=== PATIENT | male | born 1945 | race Caucasian/White ===

== ENCOUNTER 2019-01-26 15:39 | Inpatient (IN) ==
[2019-01-26] MEDS ORDERED: LOVENOX SUBQ SCH (19:15)
[2019-01-26 19:44] LABS: BASO# 0.03 X1000 (0.0-0.2); BASO% 0.4 % (0.0-0.8); EOS# 0.03 X1000 (0.0-0.7); EOS% 0.4 % (0.0-10.0); HEMATOCRIT 42.2 % (42.0-52.0); HEMOGLOBIN 14.2 g/dL (14.0-18.0); LYMPH# 2.14 X1000 (1.2-3.4); LYMPH% 27.5 % (20.5-51.1); MCH 32.3 PG (27-31); MCHC 33.6 g/dL (33-37); MCV 95.9 FL (81-99); MONO# 0.93 X1000 (0.11-0.59); MONO% 11.9 % (1.7-9.3); MPV 10.1 FL (7.4-10.4); NEUT# 4.66 X1000 (1.4-6.5); NEUT% 59.8 % (42.2-75.2); PLT 199 X1000 (130-400); RDW 15.2 % (11.5-14.5); WBC 7.79 X1000 (4.8-10.8)
[2019-01-26 20:14] LABS: AGAP 12; ALB/GLOB RATIO 1.4; ALBUMIN 3.7 g/dL (3.5-5.0); ALKALINE PHOSPHATASE 45 U/L (32-122); BUN 9 mg/dL (8-22); CALCIUM 9.1 mg/dL (8.8-10.2); CHLORIDE 101 mmol/L (98-107); COSMO 272; CREATININE 0.9 mg/dL (0.7-1.2); ESTIMATED GFR > 60; GLUCOSE 84 mg/dL (70-104); GOT 48 U/L (10-34); GPT 45 U/L (10-44); POTASSIUM 4.3 mmol/L (3.5-5.1); SODIUM 137 mmol/L (136-145); TCO2 24 mmol/L (25-35); TOTAL PROTEIN 6.3 g/dL (6.3-8.3)
[2019-01-26 20:15] LABS: CK PROFILE 771 U/L (24-204)
[2019-01-26 20:24] LABS: FREE T4 1.23 ng/dL (0.93-1.70); TSH 0.47 uIUmL (0.27-4.20)
[2019-01-26 20:30] LABS: C REACTIVE PROT QUANT 0.88 mg/L (0.00-5.00); CK INDEX 4.9 (0.0-2.5)
[2019-01-26 20:34] LABS: ALLEN TEST YES; BE 1.9 mmoll (-3.0-3.0); BLOOD TYPE ARTERIAL; HCO3-(ACT) 26.3 mmoll (20.0-26.0); METHB 0.9 % (0.0-1.5); MODALITY ROOM AIR; O2(CT) 18.2 mL/dL (15.0-23.0); O2HB 92.7 % (95.0-99.0); PCO2(98.6) 41 mmHg (35-45); PO2(98.6) 80 mmHg (60-100); SAMPLE BLOOD; SAO2 98.1 % (95.0-100.0); THB 13.9 g/dL (11.5-17.4); pH(98.6) 7.42 (7.35-7.45)
[2019-01-26 20:46] LABS: SED RATE 0 mm/hr (0-15)
[2019-01-26] MEDS ORDERED: PRAVACHOL PO SCH (21:00)
--- NOTE | 2019-01-26 21:17 | Diag Imaging Result Doc PS360 ---
EXAM: CHEST-2 VIEWS HISTORY: SOB TECHNIQUE: Chest two views COMPARISON: 10/28/2018 FINDINGS: The lungs are hyperexpanded the heart is mildly enlarged. There are sternal wires and a left-sided pacemaker. The vessels are not distended. There are no infiltrates. No pleural effusions. IMPRESSION: Mild cardiomegaly, but no congestive failure. Electronically signed by Malcolm Perez 01/26/2019 9:15 PM
--- NOTE | 2019-01-26 21:19 | Diag Imaging Result Doc PS360 ---
EXAM: LUMBAR SPINE HISTORY: Pain TECHNIQUE: AP and lateral with obliques, six views COMPARISON: None. FINDINGS: Mild scoliosis. Moderate degenerative bone spurring. Small vacuum discs. No compression fracture. No subluxation. Prominent atherosclerosis. IMPRESSION: Moderate degenerative changes. Electronically signed by Malcolm Perez 01/26/2019 9:17 PM
[2019-01-26] MEDS: ELIQUIS PO SCH (21:35)
[2019-01-26] MEDS: COREG PO SCH (21:35)
[2019-01-26] MEDS: XANAX PO SCH (21:36)
[2019-01-26] MEDS: HUMULIN R SUBQ SCH (22:52)
--- NOTE | 2019-01-26 23:34 | HISTORY AND PHYSICAL ---
CHIEF COMPLAINT: Wobbling of legs, weakness unable to walk even to the main bathroom, frequent falls. HISTORY OF PRESENT ILLNESS: He is a 73-year-old white male who recently lost his . Since then, he has been depressed. His [id number] lives right across the house. He was seen yesterday in my office with chronic anxiety and depression. He also is having weakness in the legs. This is something new for the last 10 days. He quit smoking several years ago. He has a decreased pulses on the right side. He is getting cramping in the leg upon walking. No weakness. I did the workup as an outpatient. Apparently, family brought in my office today that he cannot even go to the mailbox. Cgfjji-mb-frn was the caregiver at this time. On examination, no signs of gangrene. Decreased pulse on the right leg. He has good strength. Admitted to the hospital with rule out claudication, rule out myopathy, and rule out neurogenic claudication. He denies of any incontinence of bladder and bowels. No other symptoms. Admitted to the hospital for observation. PAST MEDICAL HISTORY: 1. BPH. 2. CAD with status post bypass surgery, with ejection fraction 30%. 3. Hypertension. 4. Insomnia. 5. Osteoarthritis. 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 7. PAF. 8. Multiple seborrheic keratoses. 9. Lumbar spine spondylosis. PAST SURGICAL HISTORY: Bypass surgery, AICD in 2014. ALLERGIES: Sulfa. MEDICATIONS: Aspirin 81 mg daily, pravastatin 40 daily, Xanax 1 mg p.o. b.i.d., Coreg 12.5 p.o. b.i.d., Eliquis 5 mg p.o. b.i.d., losartan 5 mg daily. SOCIAL HISTORY: Lives in [place]. Recently , no children. Rvjiza-st-xak is the caregiver. Smoking 1 pack a day for last 40 years, he said he quit smoking. No alcohol abuse. FAMILY HISTORY: Father of heart attack at 66. Mom of heart attack at 71. HEALTH MAINTENANCE: Refuses influenza vaccine. Last colonoscopy 2010. REVIEW OF SYSTEMS: HEENT: No headache. No vision problem. No earache. No sore throat. Neck: No goiter. No lymphadenopathy. No bruit. Cardiopulmonary: No chest pain, shortness of breath, PND, orthopnea. Gastrointestinal: No nausea, vomiting, abdominal pain. Genitourinary: No history of hesitancy, frequency, dysuria. No back pain. Musculoskeletal: Weakness in both legs upon walking and not able to go to the bathroom with the falls. Neurologic: No definitive weakness. No seizures. PHYSICAL EXAMINATION: VITAL SIGNS: Temperature is 97.4 degrees, pulse is 69, blood pressure is 152/81. 6 feet tall, 191 pounds. HEENT: Atraumatic, normocephalic. Pupils equal, reactive to light. TMs are normal. Nose and throat within normal limits. NECK: Supple. No lymphadenopathy. No goiter. CHEST: Bilateral air entry. HEART: Sounds are regular. ABDOMEN: Belly is soft, nontender. Good bowel sounds. EXTREMITIES: Decreased pulses in both feet. Femoral bruit noted. Pulses are decreased on the right side. No signs of gangrene. NEUROLOGIC: Reflexes present. Sensory exam is intact. No deficits noted. Plantar is going down. LABORATORIES: CBC: White cell count 7.7, hematocrit 42, platelets 199,000. ABG: pH is 7.42, pCO2 of 41, pO2 of 80 on room air. Carboxyhemoglobin is 4.6. SMA-7 is normal. AST and ALT were high. CK was high. ProBNP slightly elevated. B12, TSH are normal. IMAGING STUDIES: X-ray of lumbar spine: Moderate DJD changes noted. X-ray of chest: Cardiomegaly. AICD noted on the left side. No pleural effusion. ASSESSMENT AND PLAN: 1. A 73-year-old white gentleman admitted to the hospital with ischemic cardiomyopathy status post bypass, automatic implantable cardioverter-defibrillator, ejection fraction 30%. 2. Intermittent paroxysmal atrial fibrillation, currently in sinus on skidder driver. Unable to tolerate Entresto. Continue aspirin, Coreg, losartan, and Eliquis. 3. Weakness in both legs upon walking. Check the FAVIAN. Also neurogenic claudication. Is not a candidate for MRI of lumbar spine. 4. Check the vitamin D levels. 5. Elevated CK, rule out myopathy. Discontinue pravastatin. 6. Deep vein thrombosis prophylaxis on Eliquis. 7. Will follow up on the pending studies. cc: Emile Calix MD
[2019-01-27] MEDS: HUMULIN R SUBQ SCH ×4 (06:23→21:06)
--- NOTE | 2019-01-27 06:44 | EKG Report ---
Test Performed on : 01/26/2019 8:21:52 PM Test Reason : chest pain Blood Pressure : / mmHG Vent. Rate : 076 BPM Atrial Rate : 081 BPM P-R Int : 000 ms QRS Dur : 090 ms QT Int : 394 ms P-R-T Axes : 000 000 242 degrees QTc Int : 443 ms Atrial fibrillation. with frequent ventricular-paced complexes T wave abnormality, consider inferolateral ischemia Abnormal ECG When compared with ECG of 26-OCT-2018 17:26, Vent. rate has decreased BY 3 BPM Unconfirmed Result
[2019-01-27 07:52] LABS: CK INDEX 4.9 (0.0-2.5); CK-MB 18.08 ng/mL (0.0-5.0)
[2019-01-27] MEDS: XANAX PO SCH ×2 (09:25→21:06)
[2019-01-27] MEDS: ELIQUIS PO SCH ×2 (09:25→21:06)
[2019-01-27] MEDS: ASPIRIN PO SCH (09:25)
[2019-01-27] MEDS: COREG PO SCH ×2 (09:25→21:06)
[2019-01-27] MEDS: COZAAR PO SCH (09:26)
[2019-01-27] MEDS: VITAMIN D PO SCH (11:16)
--- NOTE | 2019-01-27 18:15 | PROGRESS NOTE ---
DATE: 01/27/2019 SUBJECTIVE: The patient not able to ambulate even go to the bathroom with a wobbling and falling. He denies of any weakness. No sensory disturbances. No bladder incontinence or bowel incontinence. No back pain. Workup was reviewed. He is still smoking. EXAM: Temperature is 97 degrees, pulse is 72, blood pressure is 136/83, 97% on room air.HEENT: Within normal limits. Neck: Supple. Chest: Clear. Heart: Sounds are regular. Belly: Soft, nontender. Neurological: Motor power 4/5. Reflexes absent knee and ankle jerk. Plantar is going down. Cremasteric reflex present. Pulses are decreased on the right side. INVESTIGATIONS: CK is coming down. ProBNP 3800. Vitamin D is low. B12 is normal. TSH, free T4 is normal. ASSESSMENT AND PLAN: 1. Bilateral weakness etiology to be determined. FAVIAN is normal. I do not think vascular claudication is precluding him not able to walk. 2. Elevated CK. Discontinue pravastatin. 3. Vitamin D deficiency on replacement. 4. Check the copper levels. 5. Possibilities rule out myopathy, rule out polyneuropathy, schedule for EMG and nerve conduction studies. Consult Neurology and he denies of any back pain. I doubt it this is related to lumbar spinal stenosis. Closely monitor. Neuro checks every 8 hours. Manager Latin to the bathroom with physical therapy and also walker. 6. Other problems chronic tobacco abuse withdrawals, Nicotrol patch. 7. Chronic anxiety on Xanax and ischemic cardiomyopathy stable and will repeat the CK on a daily basis and follow up on aldolase levels. Will discuss with Dr. Fuller on Wednesday. LEVEL OF DOCUMENTATION: 25 minutes. cc: Emile Calix MD
[2019-01-27] MEDS: NICODERM PATCH TD SCH (19:07)
[2019-01-27 22:40] LABS: CK INDEX 4.7 (0.0-2.5); CK-MB 14.87 ng/mL (0.0-5.0)
[2019-01-28] MEDS: HUMULIN R SUBQ SCH ×4 (06:22→22:35)
[2019-01-28 07:57] LABS: CK-MB 12.83 ng/mL (0.0-5.0)
[2019-01-28] MEDS: COZAAR PO SCH (09:24)
[2019-01-28] MEDS: ELIQUIS PO SCH ×2 (09:24→20:19)
[2019-01-28] MEDS: NICODERM PATCH TD SCH (09:24)
[2019-01-28] MEDS: COREG PO SCH ×2 (09:24→20:19)
[2019-01-28] MEDS: XANAX PO SCH ×2 (09:24→20:19)
[2019-01-28] MEDS: VITAMIN D PO SCH (09:24)
[2019-01-28] MEDS: ASPIRIN PO SCH (09:24)
--- NOTE | 2019-01-28 12:52 | PROGRESS NOTE ---
DATE: 01/28/2019 Mr. Bull is continuing to have weakness in the legs. His sensations are normal in the legs. However, he is extremely weak. He has weakness, difficulty in walking because of weakness. His vital signs are stable. According to Dr. Calix, his FAVIAN was normal. He may need neurology consultation if he continues to have the weakness. -9 cc: MD Emile Ponce MD
[2019-01-29] MEDS: HUMULIN R SUBQ SCH ×4 (05:45→20:00)
[2019-01-29 07:47] LABS: CK INDEX 6.2 (0.0-2.5); CK-MB 14.09 ng/mL (0.0-5.0)
[2019-01-29] MEDS: NICODERM PATCH TD SCH (10:01)
[2019-01-29] MEDS: ASPIRIN PO SCH (10:02)
[2019-01-29] MEDS: COZAAR PO SCH (10:02)
[2019-01-29] MEDS: XANAX PO SCH ×2 (10:03→20:00)
[2019-01-29] MEDS: ELIQUIS PO SCH ×2 (10:03→20:00)
[2019-01-29] MEDS: COREG PO SCH ×2 (10:03→20:00)
[2019-01-29] MEDS: VITAMIN D PO SCH (10:03)
--- NOTE | 2019-01-29 14:38 | PROGRESS NOTE ---
DATE: 01/29/2019 SUBJECTIVE: Mr. Luna continues to have some problem. He had elevated CK and CK-MB as well as aldolase levels. His blood pressure was 144/99. He has feeble pedal pulses. He has been having some claudication pain. Overall condition is unchanged. We are going to continue with the current management. -5 cc: MD Emile Ponce MD
[2019-01-30] MEDS: HUMULIN R SUBQ SCH ×4 (05:41→22:22)
[2019-01-30] MEDS: ASPIRIN PO SCH (09:40)
[2019-01-30] MEDS: NICODERM PATCH TD SCH (09:40)
[2019-01-30] MEDS: XANAX PO SCH ×2 (09:40→22:26)
[2019-01-30] MEDS: COZAAR PO SCH (09:40)
[2019-01-30] MEDS: ELIQUIS PO SCH ×2 (09:40→22:26)
[2019-01-30] MEDS: VITAMIN D PO SCH (09:40)
[2019-01-30] MEDS: COREG PO SCH ×2 (09:40→22:26)
--- NOTE | 2019-01-30 15:04 | CONSULTATION ---
DATE OF CONSULTATION: 01/30/2019 NEUROLOGY CONSULT: HISTORY OF PRESENT ILLNESS: Mr. Bull is 73 years old, and he reports unsteady gait for the last 2 months with a few falls. He reports no problems with clumsiness in the legs, staggering, falling prior to a few months ago. He believes problems began fairly abruptly 2 or 3 months ago, just a few weeks before his . He attributes this gait problem to a medication change, but he cannot tell me today which medication was changed. He believes that something was stopped and something was started at that time, and within a day or 2, he was having unsteady gait. He reports right and left legs feel equally clumsy. He does not notice definite loss of power in the legs. He denies numbness in the feet. He has not noticed clumsiness in the arms. He has had some back problems in the past, but no recent significant back pain and no radicular pain. He has not lost bowel or bladder control. He fell once going to the mailbox. He has fallen at least one other time. He has nearly fallen a few other times. He believes his unsteady gait has been constant, not significantly improved or deteriorated since onset. PAST HISTORY: Remarkable for hypertension, ischemic heart disease, heart failure, ischemic cardiomyopathy, COPD, anxiety. SOCIAL HISTORY: He smokes cigarettes. He stopped using ethanol about 20 years ago, by his report. CURRENT MEDICATIONS: Alprazolam 1 mg b.i.d. and he reports he has been taking that for many years and almost never misses a dose. (We do not have drug screen reported this admission.) He has aspirin, Eliquis, pravastatin, carvedilol, losartan. Again, he cannot tell me which one of these is new. VITAL SIGNS: Vital signs record shows he is afebrile. Systolic blood pressures were 100-120 during the first day here and 120 to 140s since then. DIAGNOSTIC STUDIES: Labs showed initial CK 771 with gradual decline and CK 135 today. Aldolase was 17.9 four days ago on presentation. Blood sugars have ranged 78 to 129 this admission. MCV has been normal 95.9 this admission, mid 90s on several checks over the last several years. B12 recorded 751 this admission. Normal thyroid. He has mildly elevated AST 48 and ALT 45, and these are higher than baseline. Lumbosacral x-ray shows degenerative changes and mild scoliosis. We do not have brain imaging recorded here, and he does not recall recent brain imaging study. PHYSICAL EXAMINATION: On exam, Mr. Bull is awake, alert, attentive, and appropriate. Speech is not significantly dysarthric. Language function is intact. Memory is good. He was able to discuss recent news with accurate detail. Head and neck are unremarkable. He has good extraocular movements. Visual cedeno are full. Facial motility is symmetric. Strength is normal in the arms and proximally in the legs. I can overcome the anterior tibialis, toe extensors, and toe flexors grading 4/5 bilaterally. Tone is reduced in the lower leg bilaterally. Reflexes are absent at the ankles, trace at the right knee, absent at the left knee, 1+ symmetrically at the wrists. Plantar response is silent bilaterally. He reports diminished pinprick and light touch appreciation in a stocking pattern extending to near the knee bilaterally. Proprioception is poor at the great toe MTP joint bilaterally. Gait is wide-based, mostly ataxic. There may be an antalgic feature to gait, but ataxia is more prominent. Romberg position is impossible for him with eyes open or closed. He cannot place his feet properly for heel-to-toe tandem walking without vigorous assistance. He has trouble with [id number] testing bilaterally. He did well on [id number] testing bilaterally. IMPRESSION: Predominantly ataxic gait. There is clinical evidence of peripheral neuropathy, which may or may not be contributing. His report is fairly abrupt onset of gait difficulty a few months ago with stable course since then. That history suggests stroke, but the symmetry of findings make stroke less likely. His ethanol use is reported remote and not likely to explain current cerebellar syndrome. B12 level is normal, and he does not have other evidence of myelopathy, so subacute combined degeneration seems unlikely. He might have mild diabetes mellitus and diabetic neuropathy, but that would not explain the prominent ataxia. He does not report significant weight loss, but the cigarette smoking history is noted, and a paraneoplastic problem would not be impossible. There is likely at least some ischemic peripheral vascular disease, which may contribute to the neuropathy, but would not account for the prominent ataxia. I think we need to go ahead with workup, including nerve conduction study and brain imaging. Brain MRI would be preferable, but he reports defibrillator placed, and we will have to settle for CT scan. These studies can be done as outpatient if he is otherwise ready for discharge. I will plan to follow up with him after workup. I strongly encouraged him to quit smoking cigarettes. He needs to continue ethanol abstinence. I encouraged him to be careful with gait and activities, and I specifically advised him not to walk without cane, walker, or holding on to someone or something. Thanks for asking Neurology to see Mr. Bull. cc: MD Emile Lobato III, MD MTDD
--- NOTE | 2019-01-30 21:53 | PROGRESS NOTE ---
DATE: 01/30/2019 Events noted over the weekend. Waiting to be seen by Dr. Fuller. He can able to walk a little better but still is getting leg pains, weakness. Follow up on copper levels are normal. Follow up on CK is coming down, aldolase is high and he denies of any back pain. EXAMINATION: Vital Signs: Temperature is 97 degrees, pulse is 60, blood pressure 120/80. HEENT: Within normal limits. Neck: Supple. Chest: Clear to auscultation and heart sounds are regular. Belly: Soft, nontender and gait is somewhat improved. INVESTIGATIONS: Sed rate is normal. CK was coming down to 135. Vitamin D level is low, copper level is normal. ASSESSMENT AND PLAN: 1. Unsteady gait, weakness in both legs, probably elevated CK from myopathy and discontinued pravastatin. 2. Vitamin D deficiency on replacement therapy. 3. Physical therapy consults . 4. Nicotine cessation program and follow up on vascular studies. Will discuss with Dr. Fuller about his plans about nerve condition studies and further workup. In the meantime, continue to observe. Also discussed about the disposition going home with outpatient home health or rehab. The decision is pending. Will discuss with his caregiver. LEVEL OF DOCUMENTATION: 25 minutes. cc: Emile Calix MD
[2019-01-31] MEDS: HUMULIN R SUBQ SCH ×4 (06:18→23:54)
[2019-01-31] MEDS: ASPIRIN PO SCH (09:19)
[2019-01-31] MEDS: COZAAR PO SCH (09:19)
[2019-01-31] MEDS: VITAMIN D PO SCH (09:19)
[2019-01-31] MEDS: COREG PO SCH ×2 (09:19→20:31)
[2019-01-31] MEDS: NICODERM PATCH TD SCH (09:20)
[2019-01-31] MEDS: ELIQUIS PO SCH ×2 (09:20→20:30)
[2019-01-31] MEDS: XANAX PO SCH ×2 (09:24→20:30)
--- NOTE | 2019-01-31 11:05 | Diag Imaging Result Doc PS360 ---
EXAM: CT LUMBAR SPINE W/CONTRAST 01/31/2019 HISTORY: spinal stenosis TECHNIQUE: This exam was performed using automated exposure control, adjustment of mA or kV according to patient size, and/or use of iterative reconstruction technique. COMMENT: There is disc desiccation with vacuum disc phenomenon and loss of height at the L3-4 L4-5 and L5-S1 levels. No evidence of acute fracture or subluxation is present. There are atherosclerotic calcifications in the abdominal aorta. There is mild generalized curvature of the lumbar spine with convexity to the left. At the T12-L1 level there is no evidence of spinal or foraminal stenosis. At the L1-2 level, there is some disc bulge without evidence of spinal or foraminal stenosis. At the L2-3 level there is some disc bulge without evidence of spinal or foraminal stenosis. At the L3-4 level there is disc bulge without evidence of foraminal stenosis or significant spinal stenosis. At L4-5 there is disc bulge with mild narrowing of the canal. There is no evidence of foraminal stenosis. At the L5-S1 level there is no evidence of spinal or foraminal stenosis. IMPRESSION: Minimal spinal stenosis at L4-5. Electronically signed by Boaz 01/31/2019 11:03 AM
--- NOTE | 2019-01-31 11:13 | Diag Imaging Result Doc PS360 ---
EXAM: CT HEAD W/WO CONTRAST 01/31/2019 HISTORY: AMS, BILATERAL LEG NUMBNESS TECHNIQUE: This exam was performed using automated exposure control, adjustment of mA or kV according to patient size, and/or use of iterative reconstruction technique. COMMENT: There are no previous studies available for comparison. There is a mass which uniformly enhances adjacent to or within the left lateral ventricle obstructing the atrium and producing some localized hydrocephalus in the occipital horn. This measures 4.6 cm in diameter and there is some associated vasogenic edema in the temporal lobe and posterior parietal lobe. There is no evidence of bleed or abnormal extra-axial fluid collection. No additional foci of abnormal contrast enhancement are present. The lesion is slightly hyperdense without contrast but is essentially the same density as the cortex. 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 The differential diagnosis would also include a choroid plexus papilloma although this is considered less likely. Electronically signed by Boaz 01/31/2019 11:11 AM
[2019-01-31] MEDS: DECADRON IV SCH (19:37)
[2019-01-31] MEDS: AMBIEN PO PRN (20:48)
--- NOTE | 2019-01-31 21:01 | PROGRESS NOTE ---
DATE: 01/31/2019 SUBJECTIVE: Patient still little better. He denies any headache, any vision problems. He wants to know the diagnosis. I appreciate Dr. Fuller consult. He wants to do an outpatient EMG nerve conduction studies. OBJECTIVE: Vital signs: Temperature is 98 degrees, pulse is 80, blood pressure is stable. HEENT exam: Within normal limits. Neck: Supple. Chest: Clear to auscultation. Cardiovascular: Heart sounds are regular. Abdomen: Belly is soft, nontender. Neurological: No neurological deficits noted. ASSESSMENT AND PLAN: 1. Bilateral leg weakness. A venous etiology to be determined. For the sake of workup, we will get a CT head and CT lumbar spine. 2. Vitamin D deficiency on replacement. Elevated CK. Continue to hold on pravastatin. 3. We will schedule for EMG nerve conduction delay. I spoke to Dr. Fuller. We will do the thorough workup. 4. Repeat CT showed alarming findings on the left side of the brain with 4 cm enhanced mass, etiology to be determined . We will start on IV Decadron and also follow up on sliding scale with insulin coverage. I would discuss with the issue with the neurosurgical consultation. I will review the pictures with radiologists and coordinate the care. LEVEL OF DOCUMENTATION: 35 minutes. cc: Emile Calix MD [facility]
[2019-02-01] MEDS: DECADRON IV SCH ×4 (01:15→20:04)
[2019-02-01] MEDS: HUMULIN R SUBQ SCH ×3 (07:56→19:04)
[2019-02-01] MEDS: COZAAR PO SCH (09:45)
[2019-02-01] MEDS: ASPIRIN PO SCH (09:45)
[2019-02-01] MEDS: COREG PO SCH ×2 (09:45→20:04)
[2019-02-01] MEDS: NICODERM PATCH TD SCH (09:45)
[2019-02-01] MEDS: VITAMIN D PO SCH (09:45)
[2019-02-01] MEDS: ELIQUIS PO SCH ×2 (09:45→20:04)
[2019-02-01] MEDS: XANAX PO SCH ×2 (09:45→20:04)
--- NOTE | 2019-02-01 10:46 | VASCULAR LAB ---
PROCEDURE NAME: Arterial Bilateral Legs - 01/27/2019 REFERRING PHYSICIAN: Dr. Calix. INDICATION: Bilateral lower extremity pain suggestive of peripheral vascular disease. The patient has had coronary artery bypass grafting, with a history of hypertension and smoking. FINDINGS: Systolic brachial blood pressure on the right 138 mmHg, on the left 140 mmHg, right high thigh 157 mmHg, left high thigh 159 mmHg, right low thigh 139 mmHg, left low thigh 160 mmHg, right calf 138 mmHg, left calf 152 mmHg, right ankle is 149 mmHg, left ankle 157 mmHg. There is pulsatile flow on both feet and both great toes at rest. The right ankle-brachial index is 1.06, the left ankle-brachial index is 1.12. INTERPRETATION: There is pulse waveforms involving both lower extremities along their entire length at rest. The ankle-brachial indices are normal bilaterally. cc: MD Emile Strickland MD
--- NOTE | 2019-02-01 12:17 | PROGRESS NOTE ---
DATE: 02/01/2019 SUBJECTIVE: Mr. Bull reports improvement in his gait. He reports he was able to walk several laps in the hospital hallway with a walker. Stamina is improved. He still has fatigue in the leg muscles, but reports that is much improved compared to several days ago. He does not have any new complaints today. CT scan showed likely meningioma in the posterior horn of the left lateral ventricle. Again, he reports no headache. EMG study yesterday showed evidence of severe peripheral neuropathy in the legs but no evidence of myopathy. CK continues normal. OBJECTIVE: I observed him standing and walking, and his ataxia does seem a little bit less prominent now. IMPRESSION: Prominent peripheral neuropathy of uncertain etiology. He reports ethanol use in the past that ceased decades ago. He reports no history of diabetes mellitus. Blood sugars here are 120s-150s. He has not had history of thyroid problems, and he had normal TSH and free T4 on admission at this time. He reports he took B12 supplement for awhile, but stopped that a year or so ago and B12 was 751 on 01/26/2019. 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 I am concerned about other possibilities including paraneoplastic problem. I think CT findings are likely not related to chief complaint. We discussed possible referral for elective Neurosurgery evaluation. Depending on clinical course and results of other workup, might follow and repeat head CT in several months. Unfortunately, MRI is not an option. With his report of stable course since onset and improvement in recent days, I do not think we have to do anything urgently from Neurology standpoint. I will order some lab work to look for other possible explanations for peripheral neuropathy. I will be glad to follow up with him as an outpatient if he is discharged soon. Thanks for asking Neurology to see Mr. Bull. cc: MD Emile Lobato III, MD MTDD
[2019-02-01] MEDS: AMBIEN PO PRN (20:04)
--- NOTE | 2019-02-01 21:24 | PROGRESS NOTE ---
DATE: 02/01/2019 SUBJECTIVE: The patient is a little better after IV steroids. His gait is improved. No weakness, no headache, no vision problem, no seizures. He never had a prior CT of the head. OBJECTIVE: Vital signs: Temperature is 98 degrees, vitals are stable. Neurological exam: Grossly intact. EMG nerve current studies are pending. ASSESSMENT AND PLAN: 1. Bilateral weakness of the legs improving with IV steroids. 2. Abnormal CT mass in the left parietal lobe. 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 Discussed the findings with the patient. I am going to discuss with her neurosurgical consultation as an outpatient. 3. Vitamin D deficiency. Continue replacement, increase her CK better. I was told there was no evidence of myopathy. Continue present treatment, monitoring the blood sugars on IV steroids and I will go on to discuss with Dr. Allen who is reconciliation analyst for neurosurgical consultation for this abnormal CT of the head. LEVEL OF DOCUMENTATION: 25 minutes. cc: Emile Calix MD
[2019-02-02] MEDS: HUMULIN R SUBQ SCH ×2 (00:07→06:29)
[2019-02-02] MEDS: DECADRON IV SCH ×2 (01:37→07:15)
[2019-02-02 07:44] VITALS: BP 124/94
--- NOTE | 2019-02-02 09:35 | PROGRESS NOTE ---
DATE: 02/02/2019 I observed Mr. Bull standing and walking again today. He does appear more steady than on presentation. His recent lab includes sedimentation rate 1, normal homocystine, other reports pending.. IMPRESSION: My impression is that he has peripheral neuropathy, which is significant and prominent gait ataxia which is improved. Explanation is not certain. Acute idiopathic demyelinating polyneuropathy (Guillain-[place]) is not impossible, but his report is that onset was abrupt without the typical progression usually seen with Guillain-[place]. At this point, he is stable and improving, and I do not think we need IV immunoglobulin or plasmapheresis. Workup for other explanations for neuropathy is in progress. Paraneoplastic problem is not excluded but his stable course and improvement in the last several days would not be typical. I encouraged him to be careful with gait and activities, to use a cane or walker, to take his medicines as directed and to keep followup with Dr. Calix. I will plan to see him in the office in a month to follow up on lab reports and clinical course and I will be glad to see him sooner if he starts to deteriorate or has a new neurologic problem. Thanks for asking Neurology to see Mr. Bull. cc: MD Emile Lobato III, MD [facility]
[2019-02-02] MEDS: COZAAR PO SCH (09:37)
[2019-02-02] MEDS: ASPIRIN PO SCH (09:37)
[2019-02-02] MEDS: XANAX PO SCH (09:37)
[2019-02-02] MEDS: ELIQUIS PO SCH (09:37)
[2019-02-02] MEDS: VITAMIN D PO SCH (09:37)
[2019-02-02] MEDS: NICODERM PATCH TD SCH (09:38)
[2019-02-02] MEDS: COREG PO SCH (09:38)
--- NOTE | 2019-02-04 08:40 | DISCHARGE SUMMARY ---
ADMISSION DATE: 01/28/2019 DISCHARGE DATE: 02/02/2019 DISCHARGING DIAGNOSIS: Acute weakness of both legs due to intraventricular meningioma with localized hydrocephalus in the occipital horn. The mass is 4.6 cm in diameter with vasogenic edema in the occipital area. SECONDARY DIAGNOSES: 1. Ischemic cardiomyopathy, ejection fraction 30%. 2. Hypertension. 3. Chronic anxiety disorder. 4. Benign prostatic hypertrophy. 5. Paroxysmal atrial fibrillation. 6. Lumbar spine spondylosis. No evidence of spinal stenosis. Multiple seborrheic keratosis. 7. History of bypass surgery with the AICD in 2014. Consult[address] Fuller and procedures, EMG nerve conduction studies reported no myopathy and moderate peripheral neuropathy noted. 8. Arterial flow studies. Ankle-brachial index 1.0, left side is 1.12. RADIOLOGICAL PROCEDURES: 1. CT head. Intraventricular mass in the left lateral ventricle obstructing the atrium producing localized hydrocephalus occipital horn 4.6 cm mass with vasogenic edema in the temporal lobe and posterior parietal lobe. 2. CT of lumbar spine. Minimal spinal stenosis at L4-L5. 3. Chest x-ray. Mild cardiomegaly. No CHF. BRIEF HISTORY: Please see the H and P that was done on 01/26/2019. In brief, he is a 73-year-old white male who basically came in with weakness in both legs, wobbling, not able to walk with frequent falling required assistance which is somewhat new finding for the last 2 weeks. I did not see any definitive deficits. HOSPITAL COURSE: 1. Initial workup, CK was high. I stopped the pravastatin. Follow up CK came back normal. 2. Vitamin D is low and been replaced. 3. EMG studies. Neuropathy without myopathy. 4. For weakness in both legs. CT lumbar spine showed minimal spinal stenosis and vascular studies were negative for PAD. 5. Incidental finding noted on the CT head with an intraventricular mass 4.6 cm, enhanced in the lateral ventricle of the occipital horn with obstructive hydrocephalus and vasogenic edema in the temporal and posterior parietal lobe. 6. Patient was started on IV Decadron and he started improving, able to walk 20 laps in the hospital without any losing balance. Dr. Fuller wants to be referred to the neurosurgical consult. The rest of the hospital course was uneventful. LABORATORY DATA: CBC: White cell count 7.7, hematocrit 42, platelets 199,000 sedimentation rate is 1. ABG: pH is 7.42, pCO2 40, PO2 80 on room air. SMA 7 is normal. CK was 771, proBNP 3000. Vitamin B12 750, vitamin D is on the low side. Normal thyroid function test. Serum protein electrophoresis is negative. Serum copper levels is normal. DISCHARGE INSTRUCTIONS: 1. Aspirin 81 mg daily. 2. Hold the pravastatin. 3. Xanax 1 mg p.o. b.i.d. 4. Coreg 12.5 p.o. b.i.d. 5. Eliquis 5 mg p.o. b.i.d. 6. Cozaar 25 daily. 7. Decadron 4 mg in the morning. 8. Vitamin D3, 800 units daily. I spoke to Dr. Allen to see as an outpatient next week. cc: MD Pepe Bradford MD Cheng Tao, MD
== END 2019-02-02 10:35 | disposition home or self-care (01) | DRG 54 ==
LOC: INTOOBSV 15:39 → DIRADM 15:39 → 3N 16:59
PROVIDERS: ADMIT Internal Medicine; ATTEND Internal Medicine
CPT/HCPCS: 70470; 71020; 71046; 72110; 72132; 80053; 82085; 82306; 82525; 82550; 82553; 82607; 82784; 82805; 82948; 83090; 83735; 83880; 83921; 84155; 84165; 84439; 84443; 84484; 85025; 85651; 86140; 86334; 93005; 93010; 93923; 97116; 97162; 97530; A9270; J1100; Q9967; XXXXX

== ENCOUNTER 2020-02-27 13:55 | Inpatient (IN) ==
--- NOTE | 2020-02-27 13:59 | EKG Report ---
Test Performed on : 02/27/2020 1:48:24 PM Test Reason : preop Blood Pressure : / mmHG Vent. Rate : 104 BPM Atrial Rate : 067 BPM P-R Int : 000 ms QRS Dur : 090 ms QT Int : 348 ms P-R-T Axes : 000 -25 117 degrees QTc Int : 457 ms Atrial fibrillation. with rapid ventricular response. with premature ventricular or aberrantly conduc jasbir complexes. Minimal voltage criteria for LVH, may be normal variant Nonspecific ST and T wave abnormality Abnormal ECG When compared with ECG of 18-JAN-2020 10:49, (Unconfirmed) Nonspecific T wave abnormality no longer evident in Anterior leads Confirmed by Silverio GUPTA, [place] ([id number]) on 02/28/2020 9:25:13 AM
[2020-02-27] MEDS ORDERED: KEFZOL 1 GM/D5W 1 GM/50 ML IVPB ONE (14:11)
[2020-02-27] MEDS ORDERED: 1/2 NS 500 ML ONE (14:11)
[2020-02-27] MEDS ORDERED: XYLOCAINE-MPF 2% ONE ×2 (14:22→16:03)
[2020-02-27] MEDS ORDERED: DIPRIVAN 1% ONE ×2 (14:22→16:03)
[2020-02-27 14:26] LABS: HEMATOCRIT 33.1 % (42.0-52.0); HEMOGLOBIN 10.1 g/dL (14.0-18.0); MCH 30.8 PG (27-31); MCHC 30.5 g/dL (33-37); MCV 100.9 FL (81-99); RBC 3.28 XMIL (4.7-6.1); RDW 18.8 % (11.5-14.5); WBC 8.27 X1000 (4.8-10.8)
[2020-02-27 14:45] LABS: AGAP 15; BUN 26 mg/dL (8-22); CALCIUM 9.3 mg/dL (8.8-10.2); CHLORIDE 95 mmol/L (98-107); COSMO 274; CREATININE 0.7 mg/dL (0.7-1.2); ESTIMATED GFR > 60; GLUCOSE 84 mg/dL (70-104); SODIUM 135 mmol/L (136-145); TCO2 25 mmol/L (25-35)
[2020-02-27] MEDS ORDERED: XYLOCAINE 1% ONE (15:59)
[2020-02-27] MEDS ORDERED: ROBINUL ONE (16:03)
--- NOTE | 2020-02-27 17:26 | OPERATIVE NOTE ---
PROCEDURE DATE: 02/27/2020 PROCEDURE: 1. Amputation of 5 toes on the left foot. Amputation 5th toe on the right foot. 2. Excisional debridement skin and soft tissue of the right great toe (2 x 2 cm), right 2nd toe (1 x 1 cm), right 3rd toe (2 x 1 cm), right 4th toe 1 x 1 cm. SURGEON: Pop Toribio MD. ENGINEER SECOND ASSISTANT: Hetal. PREOP DIAGNOSIS: 1. Gangrene toes 1 through 5 left foot. 2. Gangrene 5th toe on the right foot and ischemic necrosis of the toe tips on toes 1 through 4 in the right foot. POSTOP DIAGNOSIS: 1. Gangrene toes 1 through 5 left foot. 2. Gangrene 5th toe on the right foot and ischemic necrosis of the toe tips on toes 1 through 4 in the right foot. DESCRIPTION OF PROCEDURE: Satisfactory IV sedation was accomplished. Metatarsal block was accomplished bilaterally. We began by doing a 5th right small toe amputation, carried our incision through the interphalangeal joint, used a rongeur on the proximal phalanx, excised the tendon, irrigated it and then closed the skin with a 3-0 nylon simple stitches. We then did excisional debridement of the right great toe, right 2nd toe, right 3rd toe, right 4th toe. We excised skin and soft tissue to remove the eschar of the right great toe measuring 2 x 2 cm, on the right 2nd toe measuring 1 x 1 cm, on the right 3rd toe measuring 2 x 1 cm, right 4th toe measuring 1 x 1 cm. This left viable tissue underneath. We then turned our attention the left foot and did a fishmouth incision of the base of each of the toes. We carried our incision to the interphalangeal joint, amputated the toes through the interphalangeal joint on each one. Used a rongeur to debride back the proximal phalanx. We then excised the tendinous tissue and then irrigated each toe. We then closed each toe with interrupted 3-0 nylon simple stitches some transversely some longitudinally. Upon completion of this we then used Xeroform on each wound and then covered with 4 x 4s and a Kerlix and then used 6-inch Romeo on the leg from the foot up to the knee. He tolerated it well, was sent to the recovery room in satisfactory condition. cc: MD Dr. Yogi Sierra
[2020-02-27] MEDS: NORCO-10 ONE ×2 (17:50→18:30)
[2020-02-27] MEDS ORDERED: SALINE LOCK IV FLUID XX ONE (18:09)
[2020-02-27] MEDS ORDERED: ZOFRAN IV PRN (18:09)
[2020-02-27] MEDS ORDERED: XANAX PO SCH (21:00)
[2020-02-27] MEDS ORDERED: PRAVACHOL PO SCH (21:00)
--- NOTE | 2020-02-27 21:14 | CONSULTATION ---
DATE OF CONSULTATION: 02/27/2020 I was asked to postoperative medical issues after he had amputation of 1, 2, 3, 5 toes on the left side and gangrene of the 5th toe on the right side. The patient has been in good spirits. I have not seen him since he left from the last hospitalization 01/09/2020. Apparently he was at home. Currently stopped smoking and he has also stop taking Xanax. He is on detox and obviously naltrexone is helping. He is getting Libby for pain at this time. Postoperative he is doing very well. PAST MEDICAL HISTORY: BPH, malignant meningioma of lateral ventricle on the left side, CAD, hypertension, genital herpes anxiety disorder, PAF, seborrheic keratosis, lumbar spine spondylosis, vitamin D deficiency, peripheral arterial disease with low flows. PAST SURGICAL HISTORY: AICD, bypass surgery. MEDICATIONS: Coreg 12.5 p.o. b.i.d., Eliquis 5 mg p.o. b.i.d., Lexapro 10 in the morning, Lasix 40 mg in the morning, Lipitor 40 daily, pravastatin 40 daily, losartan 25 in the morning, aspirin 81 mg daily, dexamethasone 4 mg daily, naltrexone 50 p.o. b.i.d., buspirone 15 p.o. b.i.d., vitamin D3 1 tablet daily. ALLERGIES: Sulfa. SOCIAL HISTORY: He is a single. last year from kidney failure. Lives by himself with help from the [id number]. He was smoking half a pack a day for 40 years. No alcohol. FAMILY HISTORY: Father of heart attack 66. Mom of heart attack at 71. REVIEW OF SYSTEMS: HEENT: No headache. No vision problem. No earache. No sore throat. Neck: No goiter. No lymphadenopathy. No bruit. Cardiopulmonary: No chest pain, shortness of breath, PND, orthopnea. GI: No nausea, vomiting, abdominal pain. : No history of hesitancy, frequency, dysuria. Both legs were wrapped up. No neurological deficits. PHYSICAL EXAMINATION: Vital Signs: Temperature is 98 degrees, vitals are stable, 92% room air. HEENT: Atraumatic, normocephalic. Pupils equal, reactive to light. Nose and throat within normal limits. Neck: Supple. No lymphadenopathy. No goiter. Chest: Bilateral air entry. Heart: Sounds are regular. Belly is soft, nontender. No obvious deficits. LABS: CBC is normal. SMA 7 is normal. ASSESSMENT AND PLAN: 1. Postoperatively status post amputation of left foot all the toes and the right 5th toe with chronic low-flow peripheral artery disease. Pain is adequately controlled on the Libby. 2. Meningioma of the lateral ventricle on the left side status post radiation and currently on dexamethasone 4 mg daily. 3. Coronary artery disease, peripheral artery disease on aspirin. 4. Chronic anxiety on BuSpar. Discontinue Xanax. 5. Hyperlipidemia on Lipitor. 6. Coronary artery disease on beta blockers, Coreg 12.5 p.o. b.i.d. and losartan and physical therapy consult. Will discuss the disposition. Incentive spirometry. Once again, thanks for the kind referral. cc: MD Pop Bradford MD MTDD
[2020-02-27] MEDS: PERIDEX MT SCH (22:27)
[2020-02-27] MEDS: REVIA PO SCH (22:28)
[2020-02-27] MEDS: COREG PO SCH (22:28)
[2020-02-27] MEDS: BUSPAR PO SCH (22:28)
[2020-02-27] MEDS: LIPITOR PO SCH (22:28)
[2020-02-27] MEDS: KEFZOL 1 GM/D5W 1 GM/50 ML IVPB IV SCH (23:08)
[2020-02-28] MEDS: NORCO-10 PO PRN ×2 (05:00→13:52)
[2020-02-28] MEDS: KEFZOL 1 GM/D5W 1 GM/50 ML IVPB IV SCH ×3 (07:27→23:56)
[2020-02-28] MEDS: COREG PO SCH ×2 (08:12→20:01)
[2020-02-28] MEDS: DECADRON PO SCH (08:12)
[2020-02-28] MEDS: REVIA PO SCH ×3 (08:12→23:45)
[2020-02-28] MEDS: COZAAR PO SCH (08:12)
[2020-02-28] MEDS: BUSPAR PO SCH ×2 (08:12→20:01)
[2020-02-28] MEDS: ASPIRIN EC PO SCH (08:12)
[2020-02-28] MEDS: LASIX PO SCH (08:13)
[2020-02-28] MEDS: LEXAPRO PO SCH (08:13)
[2020-02-28] MEDS: PERIDEX MT SCH ×2 (08:13→20:01)
[2020-02-28] MEDS: DILAUDID IV PRN ×3 (08:17→23:56)
--- NOTE | 2020-02-28 09:20 | GENERAL SURGERY PROGRESS NOTE ---
DATE: 02/28/2020 Postop day 1 after amputation of the toes of the left foot and the fifth toe of the right foot. His bandages were changed. His wounds are doing satisfactorily. He is afebrile, heart rate 96, blood pressure 117/66. He is awake and alert. The swelling in the left leg is decreased in response to the Romeo bandage. The plan will be to resume his Eliquis. We rebandaged his feet today. We will continue with IV antibiotics. I appreciate Dr. Calix's assistance. cc: Pop Toribio MD
[2020-02-28] MEDS: ELIQUIS PO SCH ×2 (13:52→20:01)
[2020-02-28] MEDS: LIPITOR PO SCH (20:01)
--- NOTE | 2020-02-28 20:35 | PROGRESS NOTE ---
DATE: 02/28/2020 SUBJECTIVE: I spoke to Dr. Toribio and the patient is doing much better. He has stopped smoking. Off Xanax and he is more lucid. REVIEW OF SYSTEMS: None reported. PHYSICAL EXAMINATION: Vital signs: Temperature is 97 degrees. Vitals are stable. Chest: Clear. Heart: Sounds are regular. Abdomen: Belly is soft, nontender. No obvious deficits. INVESTIGATIONS: None reported. ASSESSMENT AND PLAN: Postoperative he is doing very well. Out of the bed with physical therapy. Continue perioperative care and will follow up. LEVEL OF DOCUMENTATION: 15 minutes. cc: MD Pop Bradford MD
[2020-02-29] MEDS: DILAUDID IV PRN (05:01)
[2020-02-29] MEDS: NORCO-10 PO PRN (06:06)
[2020-02-29] MEDS: KEFZOL 1 GM/D5W 1 GM/50 ML IVPB IV SCH ×3 (08:06→23:52)
[2020-02-29] MEDS: LASIX PO SCH (08:07)
[2020-02-29] MEDS: DECADRON PO SCH ×2 (08:07→08:20)
[2020-02-29] MEDS: COREG PO SCH ×2 (08:07→21:52)
[2020-02-29] MEDS: COZAAR PO SCH (08:07)
[2020-02-29] MEDS: BUSPAR PO SCH ×2 (08:07→21:52)
[2020-02-29] MEDS: REVIA PO SCH ×3 (08:08→21:51)
[2020-02-29] MEDS: PERIDEX MT SCH ×2 (08:08→21:52)
[2020-02-29] MEDS: ASPIRIN EC PO SCH (08:08)
[2020-02-29] MEDS: LEXAPRO PO SCH (08:08)
[2020-02-29] MEDS: ELIQUIS PO SCH ×2 (08:11→21:52)
--- NOTE | 2020-02-29 09:04 | GENERAL SURGERY PROGRESS NOTE ---
DATE: 02/29/2020 SUBJECTIVE: Mr. Bull's wounds look good. His amputation sites are looking good. Swelling in his legs are down. PLAN: To continue IV antibiotics and tentatively plan discharge on Wednesday, the . I am pleased with his progress. cc: Pop Toribio MD
--- NOTE | 2020-02-29 18:52 | PROGRESS NOTE ---
DATE: 02/29/2020 SUBJECTIVE: Patient is doing much better. Complains of insomnia. No other complaints. PHYSICAL EXAMINATION: Vital signs: Temperature is 98 degrees. Vitals are stable. HEENT: Within normal limits. Neck: Supple. Chest: Clear. Heart: Sounds are regular. Abdomen: Belly is soft, nontender. Neurologic: No obvious deficits. ASSESSMENT AND PLAN: 1. Postoperative amputation of all the toes on the left foot and right 5th toe. Wound dressing as per Dr. Toribio. 2. Insomnia. We will give hydroxyzine at bedtime. 3. Ambulation with physical therapy. 4. Coronary artery disease. 5. Meningioma, stable. 6. Will discuss about the disposition and continue to monitor. LEVEL OF DOCUMENTATION: 15 minutes. cc: MD Pop Bradford MD
[2020-02-29] MEDS: LIPITOR PO SCH (21:52)
[2020-02-29] MEDS: ATARAX PO SCH (21:52)
[2020-03-01] MEDS: KEFZOL 1 GM/D5W 1 GM/50 ML IVPB IV SCH ×4 (07:42→23:31)
--- NOTE | 2020-03-01 08:16 | GENERAL SURGERY PROGRESS NOTE ---
DATE: 03/01/2020 SUBJECTIVE: Mr. Bull is afebrile, heart rate 92, blood pressure 130/86. The leg swelling is down. His toe wounds all look healthy. His amputation sites are healing well. He has coarse ulcers on toes 1 through 4 on the right. We will start treating him with Vashe gauze. He can get up and move around. We hope to discharge him on Wednesday, the . cc: Pop Toribio MD
[2020-03-01] MEDS: ASPIRIN EC PO SCH (10:45)
[2020-03-01] MEDS: BUSPAR PO SCH ×2 (10:45→21:53)
[2020-03-01] MEDS: DECADRON PO SCH (10:45)
[2020-03-01] MEDS: LASIX PO SCH (10:45)
[2020-03-01] MEDS: REVIA PO SCH ×2 (10:45→21:52)
[2020-03-01] MEDS: LEXAPRO PO SCH (10:46)
[2020-03-01] MEDS: COREG PO SCH ×2 (10:46→21:52)
[2020-03-01] MEDS: ELIQUIS PO SCH ×2 (10:46→21:53)
[2020-03-01] MEDS: PERIDEX MT SCH ×2 (10:46→21:53)
[2020-03-01] MEDS: COZAAR PO SCH (10:46)
[2020-03-01] MEDS: DILAUDID IV PRN (11:32)
--- NOTE | 2020-03-01 19:52 | PROGRESS NOTE ---
DATE: 03/01/2020 SUBJECTIVE: The patient is doing very well. Left foot wound looks fine. Right foot fifth toe was amputated and no complaints. OBJECTIVE: Vital signs: Temperature is 98 degrees. Vitals are stable. Chest: Clear. Cardiovascular: Heart sounds are regular. Abdomen: Belly is soft, nontender. ASSESSMENT AND PLAN: 1. Status post amputation of all the toes on the left foot and the amputation of the fifth toe on the right side. Dr. Toribio wants to continue IV antibiotic with cefazolin. 2. Insomnia. Hydroxyzine. 3. Ischemic cardiomyopathy, stable. He quit smoking as well as Xanax, on naltrexone. 4. Intraventricular meningioma on the left brain. Stable on dexamethasone. Continue antibiotics over the weekend with physical therapy. Patient is planning to be discharged on Wednesday with outpatient home health. LEVEL OF DOCUMENTATION: 25 minutes cc: MD Pop Bradford MD
[2020-03-01] MEDS: ATARAX PO SCH (21:53)
[2020-03-01] MEDS: LIPITOR PO SCH (21:53)
[2020-03-02] MEDS: KEFZOL 1 GM/D5W 1 GM/50 ML IVPB IV SCH ×2 (07:30→14:44)
[2020-03-02] MEDS: BUSPAR PO SCH ×2 (09:33→21:25)
[2020-03-02] MEDS: LEXAPRO PO SCH (09:33)
[2020-03-02] MEDS: DECADRON PO SCH (09:33)
[2020-03-02] MEDS: ASPIRIN EC PO SCH (09:33)
[2020-03-02] MEDS: LASIX PO SCH (09:33)
[2020-03-02] MEDS: REVIA PO SCH ×2 (09:33→21:26)
[2020-03-02] MEDS: COREG PO SCH ×2 (09:33→21:25)
[2020-03-02] MEDS: PERIDEX MT SCH ×2 (09:33→21:25)
[2020-03-02] MEDS: COZAAR PO SCH (09:33)
[2020-03-02] MEDS: ELIQUIS PO SCH ×2 (09:33→21:25)
--- NOTE | 2020-03-02 11:43 | GENERAL SURGERY PROGRESS NOTE ---
DATE: 03/02/2020 SUBJECTIVE: The patient has no new complaints overnight. He still has some pain in his feet. OBJECTIVE: He is afebrile. Vital signs are stable.General: He is awake, alert, oriented x3. No acute distress. Extremities: The leg swelling is mild. The feet were examined. The amputation sites seem to be healing appropriately. No purulent drainage. No erythema. He does have a lot of dry gangrene coarse ulcers on toes 1 through 4 on the right. ASSESSMENT AND PLAN: A 74-year-old male status post multiple toe amputations. He seems to be doing okay postoperatively. We will continue local wound care and I believe the discharge plan is for Wednesday. cc: MD Pop Garcia MD
--- NOTE | 2020-03-02 13:05 | PROGRESS NOTE ---
DATE: 03/02/2020 SUBJECTIVE: The patient is doing very well. He had a good sleep. REVIEW OF SYSTEMS: None reported. PHYSICAL EXAMINATION: Vital signs are stable and he is ambulating to the bathroom in the wheelchair. Physical examination, no change. ASSESSMENT AND PLAN: Postoperative day 4 status post amputation of the toes on the left foot and the right 5th toe, and other medical problems are stable. Continue present treatment, hydroxyzine for sleep and hopefully will discharge on Wednesday with outpatient rehab. Continue present treatment. LEVEL OF DOCUMENTATION: 15 minutes. cc: MD Pop Bradford MD
[2020-03-02] MEDS: DILAUDID IV PRN (14:48)
[2020-03-02] MEDS: NORCO-10 PO PRN (18:41)
[2020-03-02] MEDS: LIPITOR PO SCH (21:25)
[2020-03-02] MEDS: ATARAX PO SCH (21:25)
[2020-03-03] MEDS: KEFZOL 1 GM/D5W 1 GM/50 ML IVPB IV SCH ×3 (01:04→16:26)
[2020-03-03] MEDS: NORCO-10 PO PRN ×3 (05:19→21:36)
[2020-03-03] MEDS: DILAUDID IV PRN ×3 (06:12→23:41)
[2020-03-03] MEDS: LEXAPRO PO SCH (08:51)
[2020-03-03] MEDS: ASPIRIN EC PO SCH (08:51)
[2020-03-03] MEDS: LASIX PO SCH (08:51)
[2020-03-03] MEDS: DECADRON PO SCH (08:51)
[2020-03-03] MEDS: REVIA PO SCH ×2 (08:51→21:36)
[2020-03-03] MEDS: BUSPAR PO SCH ×2 (08:51→21:36)
[2020-03-03] MEDS: ELIQUIS PO SCH ×2 (08:51→21:36)
[2020-03-03] MEDS: COREG PO SCH ×2 (08:51→21:36)
[2020-03-03] MEDS: COZAAR PO SCH (08:51)
[2020-03-03] MEDS: PERIDEX MT SCH ×2 (08:52→21:36)
--- NOTE | 2020-03-03 13:06 | PROGRESS NOTE ---
DATE: 03/03/2020 SUBJECTIVE: The patient is doing much better. Complains of insomnia. He is going to the bathroom in the wheelchair. No complaints. PHYSICAL EXAMINATION: Vital Signs: Temperature is 97 degrees. Vitals are stable. Physical examination, no change. ASSESSMENT AND PLAN: Postoperative day 4, amputation of all the toes on the left foot and the fifth on the right side, doing very well. Continue present treatment. He is anxious to go home tomorrow with outpatient physical therapy. Will use nonnarcotic for sleeping. Currently stable and will follow up. LEVEL OF DOCUMENTATION: 15 minutes. cc: MD Pop Bradford MD
[2020-03-03] MEDS: LIPITOR PO SCH (21:36)
[2020-03-03] MEDS: ATARAX PO SCH (21:36)
[2020-03-04] MEDS: KEFZOL 1 GM/D5W 1 GM/50 ML IVPB IV SCH ×2 (00:05→08:13)
--- NOTE | 2020-03-04 07:49 | GENERAL SURGERY PROGRESS NOTE ---
DATE: 03/04/2020 He is now 6 days after his toe amputations and debridement. His wounds all are progressing well. We will let him be discharged today. He will return to see me in the office in 2 weeks. He is to use Vashe gauze on his toes on the right foot twice a day. He has had adequate antibiotic therapy. We will discharge him home with some narcotic pain relief. cc: Pop Toribio MD
[2020-03-04 08:06] VITALS: BP 146/83
[2020-03-04] MEDS: ASPIRIN EC PO SCH (08:09)
[2020-03-04] MEDS: COZAAR PO SCH (08:10)
[2020-03-04] MEDS: DECADRON PO SCH (08:10)
[2020-03-04] MEDS: BUSPAR PO SCH (08:10)
[2020-03-04] MEDS: COREG PO SCH (08:10)
[2020-03-04] MEDS: ELIQUIS PO SCH (08:10)
[2020-03-04] MEDS: LASIX PO SCH (08:11)
[2020-03-04] MEDS: PERIDEX MT SCH (08:11)
[2020-03-04] MEDS: LEXAPRO PO SCH (08:11)
[2020-03-04] MEDS: DILAUDID IV PRN (08:14)
[2020-03-04] MEDS: REVIA PO SCH (08:16)
--- NOTE | 2020-03-07 10:02 | DISCHARGE SUMMARY ---
ADMISSION DATE: 02/27/2020 DISCHARGE DATE: 03/04/2020 PRIMARY DIAGNOSES: 1. 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 2. Ulcerations of the first 4 toes of the right foot. 3. Peripheral vascular disease. 4. Congestive heart failure. PRIMARY PROCEDURES: 1. Amputation of the 5 toes of the left foot. 2. Amputation of the 5th toe of the right foot. 3. Excisional debridement of the toes 1 through 4 on the right. HOSPITAL COURSE: This is a 74-year-old patient of Dr. Calix who was hospitalized over a month ago with extremely poor cardiac function, and he developed subsequent distal gangrene of the toes. He now presents with gangrene of the toes for removal. Mr. Bull was hospitalized on the , and underwent the procedure noted above on the . Postoperatively, he did generally well. He was maintained on Kefzol intravenously. He was kept in the hospital in order to help reduce swelling in his legs and to monitor his wound healing. Dr. Calix was consulted in order to attend to his medical concerns. He did discontinue his Xanax. In the hospital, Mr. Bull's wounds progressed satisfactory. Each amputation site looks good. Ulcerations on the toes of the right foot were treated with Vashe. After a few days of IV antibiotic therapy and appropriate wound care, it was felt he could be discharged home and that occurred on 03/04/2020. Home health will come out and help assist with bandage changes which will be Vashe gauze twice a day. He will return to see me in the office in 2 weeks for suture removal. cc: Pop Toribio MD
== END 2020-03-04 10:47 | disposition home health service (06) | DRG 257 ==
LOC: SURHOLD 13:55 → EDSTATUS 15:00 → 4N 16:26
PROVIDERS: ADMIT Surgery; ATTEND Surgery